=== PATIENT | female | born 1990 | race Caucasian/White ===

== ENCOUNTER 2019-01-15 13:42 | Emergency (ER) | payer OTHER ==
[2019-01-15] MEDS ORDERED: LIDOCAINE 1% MPF 5 ML VIAL ONE (14:34)
--- NOTE | 2019-01-15 15:19 | ER ---
Nurse's Notes [facility] Name: Manny Samson Age: 28 yrs Sex: Female : 1990 Arrival Date: 01/15/2019 Time: 13:46 Bed 23 Private MD: Diagnosis: Cutaneous abscess of left axilla Presentation: 01/15 14:00 Presenting complaint: Patient states: abscess to left axillae that began 3-4 days ago. aa5 Pt reports being 17 weeks . Transition of care: patient was not received from another setting of care. Onset of symptoms was December 2018. Risk Assessment: Do you want to hurt yourself or someone else? Patient reports no desire to harm self or others. Initial Sepsis Screen: Does the patient meet any 2 criteria? No. Patient's initial sepsis screen is negative. Does the patient have a suspected source of infection? No. Patient's initial sepsis screen is negative. Care prior to arrival: None. 14:00 Method Of Arrival: Ambulatory aa5 14:00 Acuity: KIMBERLY 4 aa5 Triage Assessment: 15:30 General: Behavior is calm. 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 - Social history:: Smoking status: Patient uses tobacco products, denies chronic smoking, but will smoke occasionally. - Ebola Screening: : No symptoms or risks identified at this time. Screenin:42 Abuse screen: Denies threats or abuse. Denies injuries from another. Nutritional mg2 screening: No deficits noted. Tuberculosis screening: No symptoms or risk factors identified. Fall Risk Assessment: 14:44 General: Appears in no apparent distress. comfortable. Pain: Complains of pain in left mg2 axilla Pain does not radiate. Neuro: Level of Consciousness is awake, alert, obeys commands, Oriented to person, place, time, situation. Cardiovascular: Capillary refill < 3 seconds Patient's skin is warm and dry. Respiratory: Airway is patent Respiratory effort is even, labored, Respiratory pattern is regular, symmetrical. GI: No signs and/or symptoms were reported involving the gastrointestinal system. : No signs and/or symptoms were reported regarding the genitourinary system. EENT: No signs and/or symptoms were reported regarding the EENT system. Derm: Skin is intact, is healthy with good turgor, Skin is pink, warm \T\ dry. normal. Derm: Abscess located on left axilla is half dollar sized, is red, is raised. Musculoskeletal: Circulation, motion, and sensation intact. Capillary refill < 3 seconds. Vital Signs: 14:01 BP 139 / 76; Pulse 98; Resp 18 S; Temp 98.2(TE); Pulse Ox 98% on R/A; Weight 108.86 kg aa5 (R); Height 5 ft. 7 in. (170.18 cm) (R); Pain 6/10; 14:46 BP 115 / 82; Pulse 91; Resp 18; Pulse Ox 98% on R/A; mg2 14:01 Body Mass Index 37.59 (108.86 kg, 170.18 cm) aa5 ED Course: 13:46 Patient arrived in ED. as 14:00 Triage completed. aa5 14:00 Arm band placed on. aa5 14:10 Sanjay Hylton MD is Attending Physician. kdr 14:42 Erickson Thompson, ARNAUD is Primary Nurse. mg2 14:45 Patient has correct armband on for positive identification. Pulse ox on. NIBP on. Door mg2 closed. 15:17 Assist provider with I \T\ D: of an abscess on left axilla Set up I\T\D tray. Performed by mg 2 Sanjay Hylton MD Wound packed. iodoform gauze, Dressing with 4X4s, tape Patient tolerated well. Patient did not have IV access during this emergency room visit. Administered Medications: 15:18 Drug: Lidocaine (1 %) 1 amp {Note: Administered by Dr. Hylton.} Volume: 5 ml; Route: ca1 Infiltration; 15:31 Follow up: Response: No adverse reaction; Marked relief of symptoms mg2 15:22 Drug: KeFLEX 500 mg Route: PO; ca1 15:30 Follow up: Response: No adverse reaction; Medication administered at discharge. mg2 Outcome: 15:19 Discharge ordered by . kdr 15:30 Discharged to home ambulatory. mg2 15:30 Condition: stable 15:30 Discharge instructions given to patient, Instructed on discharge instructions, follow up and referral plans. medication usage, Demonstrated understanding of instructions, follow-up care, medications, Prescriptions given X 1. 15:31 Patient left the ED. mg2 Signatures: Sanjay Hylton MD MD kdr Martinez, Amelia as Calderon, Audri, RN RN aa5 Erickson Thompson RN RN mg2 Nelda Underwood RN RN ca1 Corrections: (The following items were deleted from the chart) 14:02 14:00 Presenting complaint: Patient states: abscess to left axillae that began 3-4 days aa5 ago. aa5
--- NOTE | 2019-01-15 15:19 | EDPHYS ---
Physician Documentation [facility] Name: Manny Samson Age: 28 yrs Sex: Female : 1990 Arrival Date: 01/15/2019 Time: 13:46 Bed 23 Private MD: ED Physician Sanjay Hylton HPI: 01/15 17:09 This 28 yrs old Female presents to ER via Ambulatory with complaints of kdr Abscess, InQuicker. 17:09 The patient presents with an abscess of the left axilla, the patient presents with a kdr swollen area of the . Description: The affected area is small, erythematous, fluctuant, raised, swollen, tense. Onset: The symptoms/episode began/occurred gradually, 1 week(s) ago. Possible cause(s): unknown. Associated signs and symptoms: The patient has no apparent associated signs or symptoms. Modifying factors: the symptoms are alleviated by nothing, the symptoms are aggravated by movement, pressure, squeezing the lesion and expressing the contents. Severity of symptoms: At their worst the symptoms were mild, in the emergency department the symptoms are unchanged. The patient has experienced similar episodes in the past, multiple times. The patient has not recently seen a physician. 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 - Social history:: Smoking status: Patient uses tobacco products, denies chronic smoking, but will smoke occasionally. - Ebola Screening: : No symptoms or risks identified at this time. ROS: 17:09 Constitutional: Negative for fever, chills, and weight loss, ENT: Negative for injury, kdr pain, and discharge, Neck: Negative for injury, pain, and swelling, Cardiovascular: Negative for chest pain, palpitations, and edema, Respiratory: Negative for shortness of breath, cough, wheezing, and pleuritic chest pain, Abdomen/GI: Negative for abdominal pain, nausea, vomiting, diarrhea, and constipation, Back: Negative for injury and pain. 17:09 Skin: Positive for abscess. Exam: 17:09 Constitutional: This is a well developed, well nourished patient who is awake, alert, kdr and in no acute distress. Head/Face: Normocephalic, atraumatic. 17:09 Chest/axilla: Axilla: abscess, that is small, of the left axilla, with surrounding erythema, with pointing. Vital Signs: 14:01 BP 139 / 76; Pulse 98; Resp 18 S; Temp 98.2(TE); Pulse Ox 98% on R/A; Weight 108.86 kg aa5 (R); Height 5 ft. 7 in. (170.18 cm) (R); Pain 6/10; 14:46 BP 115 / 82; Pulse 91; Resp 18; Pulse Ox 98% on R/A; mg2 14:01 Body Mass Index 37.59 (108.86 kg, 170.18 cm) aa5 Procedures: 17:09 I \T\ D: Incision and drainage was performed for an abscess of the left axilla. Prepped kdr with Betadine, Anesthetized with 5 ml's 1% Lidocaine. Incised with #11 blade. Drained moderate amount purulent fluid. Packed with iodoform gauze, Dressing: sterile 4x4 gauze, the patient tolerated the procedure well. MDM: 15:19 Patient medically screened. kdr 17:09 Data reviewed: vital signs, nurses notes, lab test result(s), radiologic studies. kdr Counseling: I had a detailed discussion with the patient and/or guardian regarding: the historical points, exam findings, and any diagnostic results supporting the discharge/admit diagnosis, the need for outpatient follow up. 01/15 15:17 Order name: I\T\D Setup; Complete Time: 15:21 kdr Administered Medications: 15:18 Drug: Lidocaine (1 %) 1 amp {Note: Administered by Dr. Hylton.} Volume: 5 ml; Route: ca1 Infiltration; 15:31 Follow up: Response: No adverse reaction; Marked relief of symptoms mg2 15:22 Drug: KeFLEX 500 mg Route: PO; ca1 15:30 Follow up: Response: No adverse reaction; Medication administered at discharge. mg2 Disposition: 01/15/19 15:19 Discharged to Home. Impression: Cutaneous abscess of left axilla. - Condition is Stable. - Discharge Instructions: Incision and Drainage, Skin Abscess, [id number], Incision and Drainage, Care After. - Prescriptions for Keflex 500 mg Oral Capsule - take 1 capsule by ORAL route every 8 hours for 5 days; 15 capsule. - Medication Reconciliation Form, Thank You Letter, Antibiotic Education form. - Follow up: Private Physician; When: 2 - 3 days; Reason: If symptoms return, Further diagnostic work-up, Recheck today's complaints, Continuance of care, Re-evaluation by your physician. - Problem is new. - Symptoms have improved. Signatures: Sanjay Hylton MD MD kdr Anni aSntos RN RN aa5 Erickson Thompson, RN RN mg2 Kj, Nelda RN RN ca1 Corrections: (The following items were deleted from the chart) 15:31 15:19 01/15/2019 15:19 Discharged to Home. Impression: Cutaneous abscess of left mg2 axilla. Condition is Stable. Forms are Medication Reconciliation Form, Thank You Letter, Antibiotic Education, Prescription Opioid Use. Follow up: Private Physician; When: 2 - 3 days; Reason: If symptoms return, Further diagnostic work-up, Recheck today's complaints, Continuance of care, Re-evaluation by your physician. Problem is new. Symptoms have improved. kdr
[2019-01-15] MEDS ORDERED: CEPHALEXIN 250 MG CAP ONE (15:35)
== END 2019-01-15 15:31 | disposition home or self-care (01) ==
LOC: ER 13:42
PROC: 0J9F0ZZ Drainage of Left Upper Arm Subcutaneous Tissue and Fascia, Open Approach (ICD-10-PCS; principal; 2019-01-15)
DX: L02.412 Cutaneous abscess of left axilla (principal)
CPT/HCPCS: 99284